=== PATIENT | male | born 1980 | race Asian ===

== ENCOUNTER 2019-07-24 15:31 | Emergency (ER) | payer MEDICAID ==
[~2019-07-24] VITALS: Ht 162.6 cm; Wt 83.0 kg
[2019-07-24] MEDS ORDERED: IBUPROFEN 800 MG TABLET PO ONE (16:00)
[2019-07-24] MEDS ORDERED: METHOCARBAMOL 750 MG TABLET PO ONE (16:00)
[2019-07-24] MEDS ORDERED: IBUPROFEN 200 MG TABLET ONE (16:02)
[2019-07-24] MEDS ORDERED: METHOCARBAMOL 750 MG TABLET ONE (16:02)
[2019-07-24 16:11] LABS: BASOPHILS # (AUTO) 0.08 x10^3/uL (0-0.1); BASOPHILS % (AUTO) 1 % (0-1); EOSINOPHILS % (AUTO) 4 % (1-7); LYMPHOCYTES # (AUTO) 3.46 x10^3/uL (1-3.4); LYMPHOCYTES % (AUTO) 32 % (22-44); MD NO; MEAN CORPUSCULAR HEMOGLOBIN 30.6 pg (27.5-34.5); MEAN CORPUSCULAR HGB CONC 33.1 g/dL (33.2-36.2); MEAN CORPUSCULAR VOLUME 92.3 fL (81-97); MEAN PLATELET VOLUME 7.3 fL (7.4-10.4); MONOCYTES # (AUTO) 0.73 x10^3/uL (0.2-0.8); MONOCYTES % (AUTO) 7 % (2-9); NEUTROPHILS # (AUTO) 6.24 x10^3/uL (1.8-6.8); NEUTROPHILS % (AUTO) 57 % (42-75); PLATELET COUNT 422 x10^3/uL (130-400); RED BLOOD COUNT 5.27 x10^6/uL (4.38-5.82); RED CELL DISTRIBUTION WIDTH 12.5 % (9.4-14.8)
[2019-07-24 16:22] LABS: ALBUMIN 3.9 g/dL (3.4-5.0); ANION GAP 6 mmol/L (5-15); CALCIUM 9.4 mg/dL (8.5-10.1); CHLORIDE 106 mmol/L (98-107); CREATININE 0.87 mg/dL (0.7-1.3)
[2019-07-24 16:24] LABS: ALANINE AMINOTRANSFERASE 55 U/L (12-78); ALKALINE PHOSPHATASE 160 U/L (45-117); BILIRUBIN,TOTAL 0.6 mg/dL (0.2-1.0); TOTAL PROTEIN 8.4 g/dL (6.4-8.2)
--- NOTE | 2019-07-24 16:35 | NUR ---
PT. IS PACING IN THE BASS GOING TO ROOM 26. PT. WAS ASKED MULTIPLE TIMES. PT. IS NON-COMPLIANT. PT. STATES HE WANTS TO LEAVE. INSTRUCTIONS GIVEN.
[2019-07-24 16:39] VITALS: BP 145/60
[2019-07-24 16:43] LABS: MICROSCOPIC INDICATED
[2019-07-24 16:50] LABS: CULTURE INDICATED? NO
== END 2019-07-24 16:41 | disposition home or self-care (01) ==
LOC: ED 16:20
DX: M54.5 Low back pain (principal); K21.9 Gastro-esophageal reflux disease without esophagitis; E78.00 Pure hypercholesterolemia, unspecified
CPT/HCPCS: 36415; 72110; 80053; 81001; 83690; 85025; 99284